=== PATIENT | female | born 1990 | race Caucasian/White ===

== ENCOUNTER 2018-06-25 05:08 | Inpatient (IN) | payer OTHER ==
[2018-06-24 11:39] LABS: RPR Titer ND
[2018-06-24 11:45] LABS: Urine Appearance CLEAR; Urine Bilirubin NEGATIVE (NEG); Urine Blood NEGATIVE (NEG); Urine Color YELLOW; Urine Glucose NEGATIVE (NEG); Urine Protein NEGATIVE (NEG); Urine Urobilinogen 0.2 mg/dL (0.2-1.0)
[2018-06-24 11:48] LABS: Urine Microscopic Reflex NO UMIC
[2018-06-24 11:50] LABS: Absolute Lymphocytes (CBC) 1.8 K/uL (0.7-4.9); Absolute Monocytes 0.8 K/uL (0.1-1.3); Absolute Neutrophil 9.4 K/uL (1.8-8.0); Basophils % 0.6 % (0-1.3); Eosinophils % 0.6 % (0-4.4); Hematocrit 32.1 % (36.0-45.0); Lymphocytes % 15.2 % (15.3-44.8); MCH 29.4 pg (27.0-35.0); MCV 88.6 fL (80-100); MPV 8.4 fL (7.6-11.3); Monocytes % 6.5 % (3.3-12.3); RBC Red Blood Cell Count 3.62 M/uL (3.86-4.86)
[2018-06-24 22:43] LABS: RPR (Rapid Plasma Reagin) NON-REACT (NON-REACT)
[2018-06-25] MEDS ORDERED: METHYLERGONOVINE 0.2MG/ML AMP IM PRN ×2 (05:11→08:39)
[2018-06-25] MEDS ORDERED: Ringers Lactate 1,000 ML IV PRN (05:11)
[2018-06-25] MEDS ORDERED: CARBOPROST TROME 250 MCG/ML IM PRN ×2 (05:11→08:39)
[2018-06-25] MEDS ORDERED: NA CIT/CITRIC AC 30 ML ORAL UDC PO ONE (05:15)
[2018-06-25] MEDS ORDERED: FAMOTIDINE 20 MG/2 ML VIAL IV ONE (05:16)
[2018-06-25] MEDS ORDERED: CEFAZOLIN 2 GM in NA CHLORIDE 0.9% 20 ML IVPB SCH (06:00)
[2018-06-25] MEDS ORDERED: Ringers Lactate 1,000 ML IV SCH (06:00)
[2018-06-25] MEDS ORDERED: METOCLOPRAMIDE 10 MG/2mL INJ IV SCH (06:00)
[2018-06-25 06:12] VITALS: BMI 33.0
[2018-06-25] MEDS ORDERED: CEFAZOLIN/SWI 2gm 2 GM/20 ML SYR ONE (07:12)
[2018-06-25] MEDS ORDERED: MORPHINE SULFATE/PF 1 MG/ML (10 ML AMP) ONE (07:31)
[2018-06-25] MEDS ORDERED: LIDOCAINE 2% MPF 5 ML VIAL ONE ×2 (07:36→07:42)
[2018-06-25] MEDS ORDERED: BUPIVACAINE 0.75% (PF) 2 ML SP ONE (07:37)
[2018-06-25] MEDS ORDERED: OXYTOCIN 10 UNIT/ML ML IV ONE (07:41)
[2018-06-25] MEDS ORDERED: ONDANSETRON HCL 40 MG/20 ML VIAL ONE (08:19)
[2018-06-25] MEDS ORDERED: Oxycodone HCl/Acetaminophen 1 TAB TAB PO PRN ×2 (08:39)
[2018-06-25] MEDS ORDERED: ONDANSETRON 4 MG (ODT) TAB PO PRN (08:39)
[2018-06-25] MEDS ORDERED: KETOROLAC 30 MG/ML INJ IV PRN (08:39)
[2018-06-25] MEDS ORDERED: METHYLERGONOVINE 0.2 MG TAB PO PRN (08:39)
--- NOTE | 2018-06-25 08:44 | P.BOP ---
Preoperative diagnosis: 38 wk , Cholestasis of , breech presentation Postoperative diagnosis: Same, viable male Primary procedure: Set O Type Operator: Mireya Cosby Estimated blood loss: 800ml Specimen: placenta Anesthesia: Spinal Complications: None Drain(s): Urinary catheter Transferred to: Other (277) Condition: Good
[2018-06-25] MEDS ORDERED: OXYTOCIN/LR 20 UNIT/1,000 ML BAG IV SCH (09:00)
[2018-06-25] MEDS ORDERED: Rho(D) IG (HUMAN) 300 MCG SYR IM ONE (10:18)
[2018-06-25] MEDS ORDERED: Ringers Lactate 1,000 ML IV ONE (11:43)
[2018-06-25] MEDS ORDERED: PROMETHAZINE 25 MG/ML VIAL ONE (13:58)
--- NOTE | 2018-06-25 14:49 | PREOPHP ---
Date of Admission: 06/25/2018 History: Ms. Botello is a 28-year-old female, 1, para 0, who has been follo wed by me during this with complications of Rh negative blood type, mild anemia, cholestasi s of , and now breech presentation. She has been on Ursodiol during this , has up to four 300-mg tablets daily currently, but is still having some itching and pruritus because of the cholestasis of . It has been recommended by our Maternal and Medicine home service consultant that she be delivered at 38 weeks gestation. She is scheduled for a primary because of breech presentation tomorrow. Past Medical History: Please see records. Family History: Please see records. Review of Systems: She reports no recent cough, cold, fever, or chills. No recent nausea, vomiting. She denies any amadeo ast lumps. She denies any bowel or bladder issues. has been active. Physical Examination: General: Reveals female, in no apparent distress. Neck: Supple without adenopathy or thyromegaly. Lungs: Clear. Cardiac: Regular rate and rhythm without murmurs. Breasts: Not examined. Abdomen: Nontender. Estimated weight is approximately 7+ to 8+ pounds. Pelvic: Not performed. Extremities: No cyanosis, clubbing, or edema. heart tones well heard, breech presentation was confirmed on ultrasound examination. Impression: 38+ week , cholestasis of , breech presentation, Rh negative blood typ e. Plan: The patient will be admitted for section, delivery of infant tomorrow morning. Risks and benefits are discussed. She has signed operative permit in my presence. SERGIO/MOLLY Voice ID: [id number]
[2018-06-25] MEDS: URSODIOL 300 MG CAP PO SCH (17:00)
--- NOTE | 2018-06-26 03:13 | OP ---
Surgeon: Sawyer River MD Anesthesiologist: Gregorio Arora CRNA and Delmar Donovan M.D. Preoperative Diagnoses: A 38+ week , cholestasis of , primigravid breech presentat ion. Postoperative Diagnoses: A 38+ week , cholestasis of , primigravid breech presenta tion, delivery of viable male in breech presentation. Procedure: Spinal block anesthesia, primary section, delivery of viable male . Description Of Procedure: After the patient had received 2 g of Ancef for antibiotic prophylaxis and adequate level of spinal block anesthesia was obtained, the patient was prepped and draped in usual fashion for abdominal surgery. A Pfannenstiel skin incision was made, carried down to the fascia. F ascia incised with a combination of sharp and blunt dissection. This was from the underlyi ng rectus muscles. These were divided in the midline. The peritoneum identified and incised. Vesic outerine peritoneum incised. Bladder flap placed. A low-transverse uterine incision was made. A 7 pounds 4 ounces male infant, 9 and 9 was delivered in footling breech presentation. Mouth and nose were suctioned. Cord was clamped, cut, and infant placed in a warmer. Cord blood was obtained. Placenta was manually removed. The uterus was then exteriorized. Cervix was dilated from above wi th a ring clamp which was passed from the operative field. The uterus was closed in 2 layers utilizi ng 0 Vicryl suture in running nonlocking fashion. Second layer used to imbricate the first. Bladder flap was reapproximated with a running suture of 3-0 Vicryl. The uterus was returned to the periton eal cavity which was cleaned of amniotic fluid, debris, and blood clot. The rectus muscles were appr oximated in the midline with simple sutures of 0 Vicryl to close the abdominal cavity. The fascia wa s closed with running sutures of #1 Vicryl from either margin to the middle in a running nonlocking f ashion. Subcutaneous sutures of 3-0 Vicryl, subdermal suture of 3-0 Vicryl, and subcuticular suture of 4-0 Monocryl were used to close the skin. The patient was taken to recovery room in satisfactory condition with Fitzgerald catheter in place. Sponge and needle counts were correct x2. Roofing Sales Representative Surgeon: Dr. Cosby. Estimated Total Blood Loss: Less than 800 cc. SERGIO/MOLLY Voice ID: [id number] Report ID: [id number]
[2018-06-26 04:18] LABS: Absolute Lymphocytes (CBC) 1.4 K/uL (0.7-4.9); Absolute Neutrophil 12.7 K/uL (1.8-8.0); Basophils % 0.2 % (0-1.3); Eosinophils % 0.2 % (0-4.4); Hematocrit 27.6 % (36.0-45.0); Lymphocytes % 9.5 % (15.3-44.8); MCH 30.3 pg (27.0-35.0); MCV 89.4 fL (80-100); MPV 8.1 fL (7.6-11.3); Monocytes % 6.6 % (3.3-12.3); RBC Red Blood Cell Count 3.08 M/uL (3.86-4.86)
[2018-06-26 04:25] LABS: HBsAG Nonreactive (Nonreactive)
[2018-06-26] MEDS: URSODIOL 300 MG CAP PO SCH ×2 (04:31→16:57)
--- NOTE | 2018-06-26 07:25 | P.PN ---
Date of Service: 06/26/18 S-No complaints, only a little pain O-pp H/H noted, expected drop in hct. Bandage dry, abdomen not distended. received rhogam. A-Satisfactory, po care plan discussed P-Advance diet, d/c IV and lynch, ambulate
[2018-06-26] MEDS ORDERED: IBUPROFEN 200 MG TAB PO ONE (14:48)
[2018-06-26] MEDS: IBUPROFEN 200 MG TAB PO PRN ×2 (15:00→20:27)
[2018-06-27] MEDS: URSODIOL 300 MG CAP PO SCH (06:55)
[2018-06-27 07:59] VITALS: BP 131/70; TEMP 97.2
[2018-06-27] MEDS: IBUPROFEN 200 MG TAB PO PRN (08:48)
== END 2018-06-27 11:10 | disposition home or self-care (01) | DRG 786 ==
LOC: 2ND-WC 05:08
PROVIDERS: ADMIT Specialist; ATTEND Specialist
PROC: 10D00Z1 Extraction of Products of Conception, Low, Open Approach (ICD-10-PCS; principal; 2018-06-25 07:30)
PROC: 3E0234Z Introduction of Serum, Toxoid and Vaccine into Muscle, Percutaneous Approach (ICD-10-PCS; 2018-06-26)
DX: O26.62 Liver and biliary tract disorders in childbirth (principal); K83.1 Obstruction of bile duct; O36.0930 Maternal care for other rhesus isoimmunization, third trimester, not applicable or unspecified; O99.02 Anemia complicating childbirth; D64.9 Anemia, unspecified; O32.8XX0 Maternal care for other malpresentation of fetus, not applicable or unspecified; Z3A.38 38 weeks gestation of pregnancy; Z37.0 Single live birth
CPT/HCPCS: 36415; 81003; 85025; 86592; 86850; 86870; 86900; 86901; 87340; 88307; J0690; J2210; J2405; J2550; J2590; J2765

== ENCOUNTER 2023-08-01 06:59 | Emergency (ER) | payer BC, OTHER, SELFPAY ==
--- OUTSIDE RECORDS SUMMARY | 2023-08-01 07:03 | XMS REPORT | Continuity of Care Document ---
Author Name Unknown Address [address] [facility] [address] [place] [address] [facility] Address [address] [facility]. [address] [place] [address] Care Team Providers Care Community Pharmacist Name Role Phone Unknown, Physician Primary Care Physician JUVENCIO Dey Attending Clinician Unavailab JUVENCIO Ramirez Attending Clinician Unavailable Sharla PINEDA, Aime Attending Clinician MARKIE CERVANTES Attending Clinician Un available Chen Reese RN Attending Clinician Unavailable Jen Patel RN Attending Clinician Unavailab ana [facility], Genetic Counselor Attending Clinician Unavailable JUVENCIO SINGLETON Admitting Clinician Unavailab perez [facility] Payer Name Policy Type Policy Number Effective Date Expirati on Date Source [employer]ET[employer] CHOICE POS II [id number] 2021-08-29 00:00:00 Problems Condition Name Condition Details Condition Category Status Onset Date Resolution Date Last Treatment Date Treating Clinician Comments Source History of bilateral breast reduction surgery History of bilateral breast reduction surgery Disease Active 11-25 00:00: 00 [facility] History of delivery History of delivery Disease Active 11-25 00:00: 00 [facility] History of cholestasi s during History of cholestasi s during Disease Active 11-25 00:00: 00 [facility] History of sleep apnea History of sleep apnea Disease Active 11-25 00:00: 00 [facility] Supervisio n of other normal , antepartum Supervisio n of other normal , antepartum Disease Active 11-25 00:00: 00 [facility] Rh negative status during in first trimester Rh negative status during in first trimester Disease Active 11-25 00:00: 00 [facility] 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 Active 11-25 00:00: 00 [facility] Desires (vaginal after ) trial Desires (vaginal after ) trial Disease Active 11-25 00:00: 00 [facility] Elevated liver enzymes Elevated liver enzymes Disease Active 11-25 00:00: 00 [facility] Allergies, Adverse Reactions, Alerts Allergy Name Allergy Type Status Severity Reaction(s) Onset Date Inactive Date Treating Clinician Comments Source levoflox acin DA Active [place] rash 10-24 00:00: 00 [facility] levoflox acin DA Active [place] 10-24 00:00: 00 [facility] Lev[facility] acin Allergy to substanc e Active Rash 02-22 00:00: 00 [facility] Social History Social Habit Start Date Stop Date Quantity Comments Source ASSERTION 2021-09-10 00:00:00 [facility] History SDOH Alcohol Frequency [facility] History SDOH Alcohol Std Drinks [facility] History SDOH Alcohol Binge [facility] History of tobacco use Cigarette Smoker [facility] Exposure to SARS-CoV-2 (event) 2022-06-13 00:00:00 2022-06-23 09:01:00 Not sure [facility] Alcohol intake 2022-05-31 00:00:00 2022-05-31 00:00:00 0 /d [facility] Tobacco use and exposure 2021-11-25 00:00:00 2021-11-25 00:00:00 Smokeless tobacco non-user [facility] Alcohol Comment 2021-11-25 00:00:00 2021-11-25 00:00:00 right now but when not only occasionally [facility] Cigarette pack-years 2021-11-25 00:00:00 2021-11-25 00:00:00 [facility] Sex Assigned At 1990 00:00:00 1990 00:00:00 F [facility] Smoking Status Start Date Stop Date Source Never smoked tobacco [facility] Medications Ordered Medication Name Filled Medication Name Start Date Stop Date Current Medication? Ordering Clinician Indication Dosage Frequency Signature (SIG) Comments Components Source Vit-Fe Fumarate-FA ( VITAMINS PO) 2021-08 09:10: 14 Yes Take by mouth. [facility] NIFEdipine XL (Procardia XL) 30 MG 24 hr tablet 05-19 00:00: 00 Yes 30mg QD Take 30 mg by mouth 1 (one) time each day. [facility] NIFEdipine XL (Procardia XL) 30 MG 24 hr tablet 05-19 00:00: 00 Yes 30mg QD Take 30 mg by mouth 1 (one) time each day. [facility] ferrous sulfate (Fe Tabs) 325 (65 Fe) MG EC tablet 05-12 00:00: 06-12 04:59 :00 No [id number] 325mg Take 1 tablet (325 mg total) by mouth in the morning and 1 tablet (325 mg total) in the evening. Take before meals. Do not crush, chew, or split. . [facility] docusate sodium (Colace) 100 MG capsule 05-12 00:00: 00 06-12 04:59 :00 No [id number] 100mg Q.5D Take 1 capsule (100 mg total) by mouth 2 (two) times a day if needed for constipati on. [facility] ursodiol (Karen Forte) 500 MG tablet 05-09 00:00: 00 06-09 04:59 :00 No [id number] 500mg Q.5D Take 1 tablet (500 mg total) by mouth in the morning and 1 tablet (500 mg total) in the evening. [facility] pantoprazol e (Protonix) 40 MG EC tablet 05-05 00:00: 00 06-05 04:59 :00 No [id number] 40mg Take 1 tablet (40 mg total) by mouth 1 (one) time each day before breakfast. Do not crush, chew, or split. [facility] pantoprazol e (Protonix) 40 MG EC tablet 05-05 00:00: 00 06-05 04:59 :00 No [id number] 40mg Take 1 tablet (40 mg total) by mouth 1 (one) time each day before breakfast. Do not crush, chew, or split. [facility] metroNIDAZO LE (Flagyl) 500 MG tablet 05-05 00:00: 00 05-13 04:59 :00 No [id number] 500mg Q.5D Take 1 tablet (500 mg total) by mouth in the morning and 1 tablet (500 mg total) in the evening. Do all this for 7 days. [facility] ursodiol (Karen Forte) 500 MG tablet 03-15 00:00: 00 04-15 04:59 :00 No [id number] 500mg Q.5D Take 1 tablet (500 mg total) by mouth in the morning and 1 tablet (500 mg total) in the evening. [facility] ursodiol (Karen Forte) 500 MG tablet 03-15 00:00: 00 04-15 04:59 :00 No [id number] 500mg Q.5D Take 1 tablet (500 mg total) by mouth in the morning and 1 tablet (500 mg total) in the evening. [facility] ursodiol (Karen Forte) 500 MG tablet 03-15 00:00: 00 04-15 04:59 :00 No [id number] 500mg Q.5D Take 1 tablet (500 mg total) by mouth in the morning and 1 tablet (500 mg total) in the evening. [facility] ursodiol (Karen Forte) 500 MG tablet 03-15 00:00: 00 04-15 04:59 :00 No [id number] 500mg Q.5D Take 1 tablet (500 mg total) by mouth in the morning and 1 tablet (500 mg total) in the evening. [facility] Vit-Fe Fumarate-FA ( VITAMINS PO) 08 11:35: 35 Yes Take by mouth. [facility] Vit-Fe Fumarate-FA ( VITAMINS PO) 4-08 11:35: 35 Yes Take by mouth. [facility] Vit-Fe Fumarate-FA ( VITAMINS PO) 4-08 11:35: 35 Yes Take by mouth. [facility] Vit-Fe Fumarate-FA ( VITAMINS PO) 0 4-08 11:35: 35 Yes Take by mouth. [facility] Vit-Fe Fumarate-FA ( VITAMINS PO) 4-08 11:35: 35 Yes Take by mouth. [facility] Vit-Fe Fumarate-FA ( VITAMINS PO) 0 4-08 11:35: 35 Yes Take by mouth. [facility] Vit-Fe Fumarate-FA ( VITAMINS PO) 408 11:35: 35 Yes Take by mouth. [facility] Vit-Fe Fumarate-FA ( VITAMINS PO) 4-08 11:35: 35 Yes Take by mouth. [facility] Vit-Fe Fumarate-FA ( VITAMINS PO) 408 11:35: 35 Yes Take by mouth. [facility] Vit-Fe Fumarate-FA ( VITAMINS PO) 408 11:35: 35 Yes Take by mouth. [facility] Vit-Fe Fumarate-FA ( VITAMINS PO) 408 11:35: 35 Yes Take by mouth. [facility] Vit-Fe Fumarate-FA ( VITAMINS PO) 4-08 11:35: 35 Yes Take by mouth. [facility] Vit-Fe Fumarate-FA ( VITAMINS PO) 408 11:35: 35 Yes Take by mouth. [facility] Vital Signs Vital Name Observation Time Observation Value Comments S tia Systolic blood pressure 2022-06-23 14:05:00 137 mm[Hg] [facility] Diastolic blood pressure 2022-06-23 14:05:00 81 mm[Hg] [facility] Heart rate 2022-06-23 14:05:00 73 /min [facility] Body temperature 2022-06-23 14:05:00 36.39 Lizbeth [facility] Body height 2022-06-23 14:05:00 165.1 cm [facility] Body weight 2022-06-23 14:05:00 85[facility]458 [facility] BMI 2022-06-23 14:05:00 31.35 kg/m2 [facility] Systolic blood pressure 2022-05-31 20:03:00 112 mm[Hg] [facility] Diastolic blood pressure 2022-05-31 20:03:00 77 mm[Hg] [facility] Heart rate 2022-05-31 20:03:00 68 /min [facility] Body temperature 2022-05-31 20:03:00 36.28 Lizbeth [facility] Body height 2022-05-31 20:03:00 165.1 cm [facility] Body weight 2022-05-31 20:03:00 86.093 kg [facility] BMI 2022-05-31 20:03:00 31.58 kg/m2 [facility] Systolic blood pressure 2022-05-05 16:20:00 130 mm[Hg] [facility] Diastolic blood pressure 2022-05-05 16:20:00 79 mm[Hg] [facility] Heart rate 2022-05-05 16:20:00 74 /min [facility] Body temperature 2022-05-05 16:20:00 36.39 Lizbeth [facility] Body weight 2022-05-05 16:20:00 93.441 kg [facility] BMI 2022-05-05 16:20:00 34.28 kg/m2 [facility] Systolic blood pressure 2022-04-28 16:17:00 115 mm[Hg] [facility] Diastolic blood pressure 2022-04-28 16:17:00 74 mm[Hg] [facility] Heart rate 2022-04-28 16:17:00 73 /min [facility] Body weight 2022-04-28 16:17:00 92.08 kg [facility] BMI 2022-04-28 16:17:00 33.78 kg/m2 [facility] Systolic blood pressure 2022-04-14 17:07:00 117 mm[Hg] [facility] Diastolic blood pressure 2022-04-14 17:07:00 74 mm[Hg] [facility] Heart rate 2022-04-14 17:07:00 73 /min [facility] Body temperature 2022-04-14 17:07:00 36.5 Lizbeth [facility] Body weight 2022-04-14 17:07:00 92.534 kg [facility] BMI 2022-04-14 17:07:00 33.95 kg/m2 [facility] Systolic blood pressure 2022-03-31 14:16:00 123 mm[Hg] [facility] Diastolic blood pressure 2022-03-31 14:16:00 77 mm[Hg] [facility] Heart rate 2022-03-31 14:16:00 71 /min [facility] Body temperature 2022-03-31 14:16:00 36.39 Lizbeth [facility] Body weight 2022-03-31 14:16:00 92.08 kg [facility] BMI 2022-03-31 14:16:00 33.78 kg/m2 [facility] Systolic blood pressure 2022-03-09 14:35:00 107 mm[Hg] [facility] Diastolic blood pressure 2022-03-09 14:35:00 69 mm[Hg] [facility] Heart rate 2022-03-09 14:35:00 67 /min [facility] Body weight 2022-03-09 14:35:00 89.359 kg [facility] BMI 2022-03-09 14:35:00 32.78 kg/m2 [facility] Systolic blood pressure 2022-02-17 13:54:00 113 mm[Hg] [facility] Diastolic blood pressure 2022-02-17 13:54:00 71 mm[Hg] [facility] Heart rate 2022-02-17 13:54:00 71 /min [facility] Body weight 2022-02-17 13:54:00 87.816 kg [facility] BMI 2022-02-17 13:54:00 32.22 kg/m2 [facility] Procedures Procedure Date / Time Performed Performing Clinicia n Source COMPREHENSIVE METABOLIC PANEL 2022-03-09 15:59:00 Juvencio Meeks [facility] BILE ACIDS, TOTAL 2022-03-09 15:59:00 Juvencio Singleton [facility] Encounters Start Date/Time End Date/Time Encounter Type Admission Type Attending [facility] Care Facility Care Department Encounter ID Source 2022-06-23 09:00:05 Outpatient [facility] [id number] [facility] 2022-06-21 16:22:44 Outpatient [facility] [id number] [facility] 2022-06-07 10:45:17 Outpatient [facility] [id number] [facility] 2022-03-29 13:55:02 Inpatient JUVENCIO SINGLETON [facility] [id number] Demar [facility] 2021-10-12 12:23:34 Outpatient [facility] [id number] [facility] 2021-09-26 08:46:16 Outpatient JUVENCIO SINGLETON [facility] [id number] [facility] 2021-06-17 10:23:54 Outpatient MANIMAGJUVENCIO [facility] [id number] [facility] 2021-05-11 15:10:41 Outpatient MANI JUVENCIO [facility] [id number] [facility] 2020-10-24 13:55:22 Inpatient [facility] [id number] [facility] 2023-06-29 08:50:00 2023-06-29 08:50:00 Outpatient JUVENCIO SINGLETON [facility] [id number] [facility] 2022-06-23 08:50:00 2022-06-23 09:46:51 [facility] 1.2.840.114 350.1.13.58 9.2.7.2.686 [id number] [facility] 2022-05-31 15:00:00 2022-05-31 15:14:36 Visit Aime Magdaleno [facility] 1.2.840.114 350.1.13.58 9.2.7.2.686 [id number] [facility] 2022-05-23 15:00:00 2022-05-23 15:00:00 Outpatient MANI JUVENCIO [facility] [id number] [facility] 2022-05-17 19:12:00 2022-05-19 11:00:00 Inpatient JUVENCIO ADHIKARI [facility] [id number] Benz [facility] 2022-05-12 02:18:00 2022-05-14 13:11:00 Inpatient E JUVENCIO SINGLETON [facility] [id number] [facility] 2022-05-12 12:00:00 2022-05-12 12:00:00 Outpatient JUVENCIO SINGLETON [facility] [id number] [facility] 2022-05-12 11:30:00 2022-05-12 11:30:00 Outpatient [facility] [id number] [facility] 2022-05-12 11:20:00 2022-05-12 11:20:00 Outpatient JUVENCIO SINGLETON [facility] [id number] [facility] 2022-05-05 11:30:00 2022-05-05 13:08:51 Outpatient [facility] [id number] [facility] 2022-05-05 10:50:00 2022-05-05 12:04:14 Routine Juvencio Singleton [facility] 1.2.840.114 350.1.13.58 9.2.7.2.686 [id number] [facility] 2022-04-28 11:30:00 2022-04-28 12:46:19 Outpatient [facility] [id number] [facility] 2022-04-28 10:40:00 2022-04-28 11:48:04 Routine Juvenc[facility] Singleton [facility] 1.2.840.114 350.1.13.58 9.2.7.2.686 [id number] [facility] 2022-04-21 15:00:00 2022-04-21 15:53:31 Outpatient [facility] [id number] [facility] 2022-04-14 11:30:00 2022-04-14 12:56:30 Routine Juvencio Singleton [facility] 1.2.840.114 350.1.13.58 9.2.7.2.686 [id number] [facility] 2022-04-14 11:00:00 2022-04-14 12:03:00 Outpatient [facility] [id number] [facility] 2022-03-31 09:10:00 2022-03-31 10:15:46 Routine Mani Juvencio [facility] 1.2.840.114 350.1.13.58 9.2.7.2.686 [id number] [facility] 2022-03-29 11:54:00 2022-03-29 13:43:00 Emergency E MARKIE CERVANTES [facility] [id number] [facility] 2022-03-29 00:00:00 2022-03-29 00:00:00 Telephone Hugh Chen Ashby [facility] 1.2.840.114 350.1.13.58 9.2.7.2.686 [id number] [facility] 2022-03-20 14:30:00 2022-03-20 15:03:05 Outpatient [facility] [id number] [facility] 2022-03-20 15:00:00 2022-03-20 15:00:00 Outpatient [facility] [id number] [facility] 2022-03-15 00:00:00 2022-03-15 00:00:00 Telephone Hugh Chen Reese Chen [facility] 1.2.840.114 350.1.13.58 9.2.7.2.686 [id number] [facility] 2022-03-15 00:00:00 2022-03-15 00:00:00 Telephone HughChen rae Chen [facility] 1.2.840.114 350.1.13.58 9.2.7.2.686 [id number] [facility] 2022-03-14 00:00:00 2022-03-14 00:00:00 Telephone Capon BridgeChen rae Chen [facility] 1.2.840.114 350.1.13.58 9.2.7.2.686 [id number] [facility] 2022-03-09 09:50:00 2022-03-09 11:18:05 Routine Juvencio Singleton [facility] 1.2.840.114 350.1.13.58 9.2.7.2.686 [id number] [facility] 2022-03-02 00:00:00 2022-03-02 00:00:00 Telephone Chen Reese Valerie [facility] 1.2.840.114 350.1.13.58 9.2.7.2.686 [id number] [facility] 2022-02-24 00:00:00 2022-02-24 00:00:00 Telephone Jen Patel Chelsea [facility] 1.2.840.114 350.1.13.58 9.2.7.2.686 [id number] [facility] 2022-02-17 08:50:00 2022-02-17 09:42:23 Routine Juvencio Singleton [facility] 1.2.840.114 350.1.13.58 9.2.7.2.686 [id number] [facility] 2022-01-18 09:20:00 2022-01-18 10:45:24 Routine Juvencio Singleton [facility] 1.2.840.114 350.1.13.58 9.2.7.2.686 [id number] [facility] 2021-12-30 13:00:00 2021-12-30 13:32:44 Routine Juvencio Singleton [facility] 1.2.840.114 350.1.13.58 9.2.7.2.686 [id number] [facility] 2021-11-25 10:40:00 2021-11-25 11:53:57 Initial Juvencio Singleton [facility] 1.2.840.114 350.1.13.58 9.2.7.2.686 [id number] [facility] 2021-11-25 09:00:00 2021-11-25 10:00:00 Education [facility], Genetic Counselor [facility] 1.2.840.114 350.1.13.58 9.2.7.2.686 [id number] [facility] 2021-11-22 00:00:00 2021-11-22 00:00:00 Telephone Hugh Chenron Reese Chen [facility] 1.2.840.114 350.1.13.58 9.2.7.2.686 [id number] [facility] 2021-10-26 00:00:00 2021-10-26 00:00:00 Telephone Capon BridgeChen rae Chen [facility] 1.2.840.114 350.1.13.58 9.2.7.2.686 [id number] [facility] 2021-10-12 10:30:00 2021-10-12 11:40:50 Office Visit Juvencio Singleton [facility] 1.2.840.114 350.1.13.58 9.2.7.2.686 [id number] [facility] 2021-10-10 00:00:00 2021-10-10 00:00:00 Telephone Sil Reeseerie HughChen [facility] 1.2.840.114 350.1.13.58 9.2.7.2.686 [id number] [facility] 2021-06-24 08:51:29 2021-06-24 09:35:03 Procedure Visit Juvencio Singleton [facility] 1.2.840.114 350.1.13.58 9.2.7.2.686 [id number] [facility] 2021-06-17 08:46:57 2021-06-17 10:22:16 Office Visit Juvencio Singleton [facility] 1.2.840.114 350.1.13.58 9.2.7.2.686 [id number] [facility] Results Test Description Test Time Test Comments Results Result Co mments Source [facility] [id number] 06:00:00* Test Item Value Reference Range Interpretation Comme nts GLUCOSE (test code = 2345-7) 67 mg/dL 65-99 ? Fastin g reference interval UREA NITROGEN (BUN) (test code = 3094-0) 8 mg/dL 7-25 CREATININE (test code = 2160-0) 0.69 mg/dL 0.5-0.97 EGFR (test code = 231490985) See_Comment The eGFR is base d on the CKD-EPI 2020 equation. To calculate the new eGFR from a previous Creatinine or Cystatin Cresult, go to https://www.kidne y.org/professiona ls/kdoqi/gfr%5Fca lculator [Automated message] The system which generated this result transmitted reference range: > OR = 60 mL/min/1.73m2. The reference range was not used to interpret this result as normal/abnormal. BUN/CREATININE RATIO (test code = 3097-3) NOT APPLICABLE See_Comment [Automated message] The system which generated this result transmitted reference range: 6 - 22 (calc). The reference range was not used to interpret this result as normal/abnormal. SODIUM (test code = 2951-2) 138 mmol/L 135-146 POTASSIUM (test code = 2823-3) 4.5 mmol/L 3.5-5.3 CHLORIDE (test code = 2075-0) 107 mmol/L 98-110 CARBON DIOXIDE (test code = 2027-9) 24 mmol/L 20-32 CALCIUM (test code = 64391-8) 9 mg/dL 8.6-10.2 PROTEIN, TOTAL (test code = 2885-2) 6.6 g/dL 6.1-8.1 ALBUMIN (test code = 1751-7) 3.8 g/dL 3.6-5.1 GLOBULIN (test code = 12032-9) See_Comment [Automated message] The system which generated this result transmitted reference range: 1.9 - 3.7 g/dL (calc). The reference range was not used to interpret this result as normal/abnormal. ALBUMIN/GLOBULIN RATIO (test code = 1759-0) See_Comment [Automated message] The system which generated this result transmitted reference range: 1.0 - 2.5 (calc). The reference range was not used to interpret this result as normal/abnormal. BILIRUBIN, TOTAL (test code = 1975-2) 0.7 mg/dL 0.2-1.2 ALKALINE PHOSPHATASE (test code = 6768-6) 99 U/L 31-125 AST (test code = 1920-8) 18 U/L 10-30 ALT (test code = 1742-6) 26 U/L 6-29 RAC (test code = RAC) Performing Organization Information: ? ?Site ID: [id number] ? ?Name: [facility] ? ?Address: [address] [place] [id number] ? ?Director: PACO CLAYTON MD [facility] HealthCHEMISTRY 7 [id number] 14:50:00* Test Item Value Reference Range Interpretation Comme nts SODIUM (test code = NA) 143 mEq/L 135-145 N POTASSIUM (test code = K) 4.2 mEq/L 3.5-5.0 N CHLORIDE (test code = CL) 106 mEq/L 100-115 N CARBON DIOXIDE (test code = CO2) 30 mEq/L 22-31 N ANION GAP (test code = GAP) 11.30 10-20 N GLUCOSE (test code = GLU) 91 mg/dL 65-110 N BLOOD UREA NITROGEN (test co de = BUN) 12 mg/dL 7-18 N GLOMERULAR FILTRATION RATE ( test code = GFR) 65 ml/min >60 N CREATININE (test code = CREAT) 1.0 mg/dL 0.5-1.0 N CALCIUM (test code = CA) 9.3 mg/dL 8.4-10.2 N UR HCG [id number] 14:39:00* Test Item Value Reference Range Interpretation Comme nts UR HCG QUAL (test code = HCGQLU) NEGATIVE 1. Very dilute u rine specimens, as indicated by a lowspecific gravity, may not contain labor relations representative levels ofhCG. 2. False negative results may occur when the levels of hCGare below the sensitivity level of the test. If is still suspected, a first morningurine specimen should be collected 48 hours later andtested. CBC W/AUTO [id number] 14:35:00* Test Item Value Reference Range Interpretation Comme nts WHITE BLOOD CELL (test code = WBC) 7.6 K/mm3 6.5-12.3 N RED BLOOD CELL (test code = RBC) 4.30 M/mm3 3.51-4.69 N HEMOGLOBIN (test code = HGB) 12.8 g/dL 10.1-13.8 N HEMATOCRIT (test code = HCT) 39.6 % 32.5-41.8 N MEAN CELL VOLUME (test code = MCV) 92.1 fL 84.6-96.6 N MEAN CELL HGB (test code = MCH) 29.8 pg 27.3-33.9 N MEAN CELL HGB CONCETRATION ( test code = MCHC) 32.3 gm/dL 32.0-34.2 N RED CELL DISTRIBUTION WIDTH (test code = RDW) 12.9 % 12.2-16.3 N PLATELET COUNT (test code = PLT) 222 K/mm3 134-363 N MEAN PLATELET VOLUME (test c ode = MPV) 8.8 fL 9.2-12.7 L NEUTROPHIL % (test code = NT%) 56.8 % 57.9-77.3 L LYMPHOCYTE % (test code = LY%) 33.6 % 14.5-29.7 H MONOCYTE % (test code = MO%) 8.1 % 3.6-10.2 N EOSINOPHIL % (test code = EO%) 0.9 % 0.0-3.0 N BASOPHIL % (test code = BA%) 0.5 % 0.1-0.9 N NEUTROPHIL # (test code = NT#) 4.3 K/mm3 LYMPHOCYTE # (test code = LY#) 2.6 K/mm3 MONOCYTE # (test code = MO#) 0.6 K/mm3 EOSINOPHIL # (test code = EO#) 0.07 K/mm3 BASOPHIL # (test code = BA#) 0.0 K/mm3 PLATELET MORPHOLOGY REQUIRED (test code = PLTMR) NORMAL NORMAL Notes Date/Time Note Provider Source 2020-10-24 14:02:00 [id number] [facility] ([facility])EMERGENCY PROVIDER REPORTREPORT#:[id number] REPORT STATUS: SignedDATE:10/24/20 TIME: 1402 PATIENT: SHARI ALVAREZ UNIT #: [id number]#: [id number] ROOM/BED:AGE: 30 SEX: F PCP PHYS: DOES_NOT KNOWSERVICE AUTHOR: Neida Rosas MD * ALL edits or amendments must be made on the electronic/computer document * HPI-General Illness Free Text HPI NotesFree Text HPI Notes30 yo lady wosig hx of hemmroids x 1 wk 3 days stareted noting yesterday bm that noted bleeding today started with pressure pelvic pain bl passed clots and used pads sx disc, breast reduction and c [place] none ros -ConstitutionalDenies: Fever. Chills.-GIDenies: Nausea, Vomiting. Abdominal pain. Diarrhea + Hemorrhoids, rectal bleeding constipation-GUDenies: Dysuria, Hematuria,-MusculoskeletalDenies: Extremity pain, Ext Swelling-SkinDenies: Rash, Swelling.-NeurologicDenies: Numbness, Tingling.-EyesDenies:visual loss, blurred vision-RespiratoryDenies: Shortness of breath. dyspnea on exertion-CardiovascularDenies: Chest pain, Dyspnea on exertion, Edema.-Allergy:Denies Hives, Itching peGeneral/Const General/Const Awake, AlertMS Head Head Atraumatic, NormocephalicEyes Eyes Atraumatic, No scleral icterusMS Neck Neck Atraumatic, No meningismus, Full range of motionneck easily mobileResp/Chest no labored bs, no audible wheezing Cardiovascular Cardiovascular no cyanosis, Ext: moving all 4 ext, no swelling/ cyanosis noted on UE BlSkin Skin no apparent rashes, Dry, IntactNeurologic Neurologic Oriented X3, Speech NL, Gait NLENTAtraumatic, Airway patent, Ext aud canal NL, GeneralInitial Greet Date/Time 10/24/20 1345 PresentationChief Complaint __ (hemmroids) Past Medical History - AdultStated Complaint HEMORRHOIDS,LOTS OF RECTAL BLEEDING W/CLOTSAllergiesCoded Allergies:levofloxacin (From LEVAQUIN) (Mild, rash 10/24/20) Calculated Suicide Risk (nurs) No riskSmoking status: Smoking status for patients 13 years old or older: Never Smoker Physical Exam Vital SignsVital SignsFirst Documented: Result Date Time Pulse Ox 100 10/24 1348 B/P 109/61 / 1348 B/P Mean 77 10/24 1348 O2 Delivery Room air 10/24 1348 Temp 36.9 03/ 1348 Pulse 79 10/24 1348 Resp 18 10/24 1348 Last Documented: Result Date Time Pulse Ox 100 10/24 1348 B/P 109/61 03/ 1348 B/P Mean 77 10/24 1348 O2 Delivery Room air 10/24 1348 Temp 36.9 / 1348 Pulse 79 / 1348 Resp 18 10/24 1348 Review of Vital Signs Reviewed ImagesGenitourinary Female - Genitals Close-up[Embedded Image Not Available] 1) Nonthrombosed hemorrhoid, not bleeding, no internal hemorrhoids palpated Interpretation Diagnostics Lab Results InterpretationResultsLaboratory Tests 10/24/20 142:[Embedded Image Not Available]Laboratory Tests: 10/24 1426 Chemistry Sodium (135 - 145 mEq/L) 143 Potassium (3.5 - 5.0 mEq/L) 4.2 Chloride (100 - 115 mEq/L) 106 Carbon Dioxide (22 - 31 mEq/L) 30 Anion Gap (10 - 20) 11.30 BUN (7 - 18 mg/dL) 12 Creatinine (0.5 - 1.0 mg/dL) 1.0 Glomerular Filtr Rate (>60 ml/min) 65 Glucose (65 - 110 mg/dL) 91 Calcium (8.4 - 10.2 mg/dL) 9.3 Hematology WBC (6.5 - 12.3 K/mm3) 7.6 RBC (3.51 - 4.69 M/mm3) 4.30 Hgb (10.1 - 13.8 g/dL) 12.8 Hct (32.5 - 41.8 %) 39.6 MCV (84.6 - 96.6 fL) 92.1 MCH (27.3 - 33.9 pg) 29.8 MCHC (32.0 - 34.2 gm/dL) 32.3 RDW (12.2 - 16.3 %) 12.9 Plt Count (134 - 363 K/mm3) 222 MPV (9.2 - 12.7 fL) 8.8 L Neut % (Auto) (57.9 - 77.3 %) 56.8 L Lymph % (Auto) (14.5 - 29.7 %) 33.6 H Troup % (Auto) (3.6 - 10.2 %) 8.1 Eos % (Auto) (0.0 - 3.0 %) 0.9 Baso % (Auto) (0.1 - 0.9 %) 0.5 Neut # (Auto) (K/mm3) 4.3 Lymph # (Auto) (K/mm3) 2.6 Troup # (Auto) (K/mm3) 0.6 Eos # (Auto) (K/mm3) 0.07 Baso # (Auto) (K/mm3) 0.0 Urines Urine HCG, Qual NEGATIVE Patient Discharge Departure Vital Signs/ConditionVital SignsFirst Documented: Result Date Time Pulse Ox 100 03/ 1348 B/P 109/61 03/07 1348 B/P Mean 77 03/07 1348 O2 Delivery Room air 03/ 1348 Temp 36.9 03/07 1348 Pulse 79 03/07 1348 Resp 18 03/07 1348 Last Documented: Result Date Time Pulse Ox 100 03/07 1348 B/P 109/61 03/07 1348 B/P Mean 77 03/07 1348 O2 Delivery Room air 03/07 1348 Temp 36.9 03/07 1348 Pulse 79 03/07 1348 Resp 18 03/07 1348 All vital signs available at the time of this entry have been reviewed. Clinical ImpressionClinical ImpressionPrimary Impression: ConstipationSecondary Impressions: Bleeding hemorrhoid Disposition DecisionDischarge )( Discharged to Home Yes )( Time 1516 )( Date 10/24/20 Discharge/Care Plan(Auto) PrescriptionsCurrent Visit ScriptsDOCUSATE SODIUM (COLACE) 100 MG PO DAILY 30 Days #30 CAPS HYDROCORTISONE (ANUSOL-HC 2.5%) 1 APPLIC RECTAL BID PRN PRN hemmroids 7 Days #30 GM UNTIL RESOLVED Additional InstructionsPlease call your GI doctor for follow-up appointment. Hemorrhoids may need to be ligated. Return to the emergency department with new or worsening symptoms.Caity Block MD, Rohan DO Discharge NoteI have spoken with the patient and/or caregivers. I have explained the patient'scondition, diagnoses and treatment plan based on the information available to meat this time. I have answered the patient's and/or caregiver's questions and addressed any concerns. The patient and/or caregivers have as good an understanding of the patient's diagnosis, condition and treatment plan as can beexpected at this point. The vital signs have been stable. The patient's condition is stable and appropriate for discharge from the emergency department. The patient will pursue further outpatient evaluation with the primary care physician or other designated or consulting physician as outlined in the discharge instructions. The patient and/or caregivers are agreeable to this planof care and follow-up instructions have been explained in detail. The patient and/or caregivers have received these instructions in written format and have expressed an understanding of the discharge instructions. The patient and/or caregivers are aware that any significant change in condition or worsening of symptoms should prompt an immediate return to this or the closest emergency department or a call to 911. at 1936RPT #:[id number] OF [facility]PORTTex[facility] department [id number] ilable for patient [id number] [facility]
[2023-08-01] MEDS ORDERED: ONDANSETRON 4 MG/2 ML VIAL ONE (07:33)
[2023-08-01 07:34] LABS: Absolute Lymphocytes (CBC) 1.6 K/uL (0.7-4.9); Hematocrit 41.9 % (36.0-45.0); Lymphocytes % 13.4 % (15.3-44.8); MCV 88.4 fL (80-100); MPV 7.2 fL (7.6-11.3); Platelets 255 thou/uL (152-406); RBC Red Blood Cell Count 4.74 M/uL (3.86-4.86)
[2023-08-01 07:49] LABS: Albumin 3.7 g/dL (3.4-5.0); Bilirubin Total 0.6 mg/dL (0.2-1.0); Potassium 4.1 mEq/L (3.5-5.1); Protein, Total 7.6 g/dL (6.4-8.2)
[2023-08-01] MEDS ORDERED: MORPHINE 4 MG/ML SYR ONE ×2 (08:01→10:15)
--- NOTE | 2023-08-01 08:15 | ER ---
Nurse's Notes [facility] Name: Marianna Botello Age: 33 yrs Sex: Female : 1990 Arrival Date: 08/01/2023 Time: 06:59 Bed 8 Private MD: Diagnosis: Left sided colitis with rectal bleeding;Lower abdominal pain, unspecified;Diarrhea, unspecified Presentation: 08/01 07:16 Chief complaint: Diarrhea and lower abdominal pain x 4 days, vomiting and blood in hb stool x 2 days, pain became worse last night. Seen at [facility] yesterday, prescribed Bactrim, Flagyl, and dicyclomine for colitis, has not started Flagyl yet. Coronavirus screen: At this time, the client does not indicate any symptoms associated with coronavirus-19. Ebola Screen: No symptoms or risks identified at this time. Initial Sepsis Screen: Does the patient meet any 2 criteria? No. Patient's initial sepsis screen is negative. Does the patient have a suspected source of infection? No. Patient's initial sepsis screen is negative. Risk Assessment: Do you want to hurt yourself or someone else? Patient reports no desire to harm self or others. Onset of symptoms was July 29, 2023. 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 - Social history:: Smoking status: Patient denies any tobacco usage or history of. Screenin:22 [facility] ED Fall Risk Assessment (Adult) Score/Fall Risk Level 0 - 2 = Low Risk ll1 Oriented to surroundings, Maintained a safe environment, Educated pt \T\ family on fall prevention, incl call for assistance when getting out of bed, Hourly rounding (assess needs \T\ fall precautionary measures) done. Abuse screen: Denies threats or abuse. Nutritional screening: No deficits noted. Tuberculosis screening: No symptoms or risk factors identified. Assessment: 07:10 General: Appears uncomfortable, Behavior is calm, cooperative, appropriate for age. ll1 Pain: Complains of pain in abdomen Quality of pain is described as aching, crampy. Neuro: No deficits noted. Cardiovascular: No deficits noted. GI: Abdomen is flat, Bowel sounds present X 4 quads. Abd is soft Abdomen is tender to palpation Reports lower abdominal pain, upper abdominal pain, cramping, diarrhea, bloody stool, nausea, vomiting. 07:55 Reassessment: No changes from previously documented assessment. Patient and/or family ll1 updated on plan of care and expected duration. Pain level reassessed. Patient is alert, oriented x 3, equal unlabored respirations, skin warm/dry/pink. 07:59 Reassessment: No changes from previously documented assessment. Rectal exam with Dr. sindy Garcia, tolerated well. 08:26 Reassessment: No changes from previously documented assessment. Patient and/or family ll1 updated on plan of care and expected duration. Pain level reassessed. Patient is alert, oriented x 3, equal unlabored respirations, skin warm/dry/pink. 08:42 Reassessment: No changes from previously documented assessment. Patient and/or family ll1 updated on plan of care and expected duration. Pain level reassessed. Patient is alert, oriented x 3, equal unlabored respirations, skin warm/dry/pink. 09:12 Reassessment: No changes from previously documented assessment. Patient and/or family ll1 updated on plan of care and expected duration. Pain level reassessed. Patient is alert, oriented x 3, equal unlabored respirations, skin warm/dry/pink. 10:05 Reassessment: No changes from previously documented assessment. Patient and/or family ll1 updated on plan of care and expected duration. Pain level reassessed. Patient is alert, oriented x 3, equal unlabored respirations, skin warm/dry/pink. Vital Signs: 07:16 BP 132 / 80; Pulse 72; Resp 16; Temp 98.4(O); Pulse Ox 100% on R/A; Weight 75.75 kg; hb Height 5 ft. 5 in. ; Pain 10/10; 07:59 BP 106 / 66; Pulse 67; Resp 16; Pulse Ox 100% on R/A; ll1 08:19 BP 130 / 87; Pulse 67; Resp 18; Pulse Ox 98% on R/A; ld1 08:42 BP 134 / 87; Pulse 62; Resp 16; Pulse Ox 100% on R/A; Pain 2/10; ll1 10:04 BP 131 / 86; Pulse 65; Resp 16; Pulse Ox 100% ; Pain 7/10; ll1 07:16 Body Mass Index 27.79 (75.75 kg, 165.1 cm) hb 07:16 Pain Scale: Adult hb 08:42 Pain Scale: Adult ll1 10:04 Pain Scale: Adult ll1 ED Course: 07:03 Patient arrived in ED. gm2 07:08 Wade Garcia DO is Attending Physician. ms3 07:10 Jesusita Montano, CANDI is Primary Nurse. ll1 07:10 Arm band placed on Patient placed in an exam room, on a stretcher. ll1 07:15 Inserted saline lock: 22 gauge in right antecubital area, using aseptic technique. ll1 Blood collected. 07:19 Triage completed. hb 07:23 Patient has correct armband on for positive identification. Bed in low position. Call ll1 light in reach. Client placed on continuous cardiac and pulse oximetry monitoring. NIBP monitoring applied. 08:10 initiated transfer to [facility]. bd 09:07 pt accepted in transfer to [facility] by Dr Gale,admin approval given by Ashok Singh. pt going to [id number]. 09:12 No provider procedures requiring assistance completed. Patient transferred, IV remains ll1 in place. 09:13 Provided Education on: n/a. ll1 Administered Medications: 07:39 Drug: Ondansetron IVP 4 mg IVP once; over 2 minutes Route: IVP; Site: right antecubital;ll1 08:42 Follow up: Response: No adverse reaction ll1 07:54 Drug: morphine IVP or IV 4 mg IVP once over 4 mins Route: IVP; Infused Over: 4 mins; ll1 Site: right antecubital; 08:42 Follow up: Response: No adverse reaction; Pain is decreased; RASS: Alert and Calm (0) ll1 10:04 Drug: morphine IVP or IV 4 mg IVP once over 4 mins Route: IVP; Infused Over: 4 mins; ll1 Site: right antecubital; Medication: 07:23 VIS not applicable for this client. ll1 Outcome: 08:14 ER care complete, transfer ordered by MD. ms3 09:13 Transferred by ground EMS [place] [facility] [facility] completed. ll1 09:13 Transferred Note: Report called to Kisha Wilson RN at [facility] 09:13 Condition: stable 09:13 Instructed on the need for transfer, 10:05 Patient left the ED. ll1 Signatures: Lou Clark Heather, RN RN Jesusita Montano RN RN ll1 Wade Garcia DO DO ms3 Kathrine Garcia RN RN 1 Yamila Harper 2
--- NOTE | 2023-08-01 08:15 | EDPHYS ---
Physician Documentation [facility] Name: Marianna Botello Age: 33 yrs Sex: Female : 1990 Arrival Date: 08/01/2023 Time: 06:59 Bed 8 Private MD: ED Physician Wade Garcia HPI: 08/01 07:31 This 33 yrs old Female presents to ER via Ambulatory with complaints of Abdominal Pain, ms3 Bloody Stools. 07:31 33-year-old female with past medical history of diverticulitis [place] [facility] [place] diarrhea, abdominal pain that began on Sunday. Patient states she was seen at [place] emergency department 2 times yesterday and was instructed to go to an emergency department that was connected to a hospital if she had further problems. Patient states her lower abdominal pain has continued and she is now having bloody diarrhea. Patient is currently taking Bactrim and Bentyl. Patient was unable to fill her prescription for Flagyl as she received it at 11 PM last night. Patient denies any alleviating or inciting factors.. 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 - Social history:: Smoking status: Patient denies any tobacco usage or history of. ROS: 07:31 Constitutional: Negative for fever, and chills. Neck: Negative for injury, pain, and ms3 swelling, Cardiovascular: Negative for chest pain, and palpitations. Respiratory: Negative for shortness of breath, cough, wheezing, and pleuritic chest pain, Abdomen/GI: Negative for abdominal pain, nausea, vomiting, diarrhea, and constipation, Skin: Negative for injury, rash, and discoloration, 07:31 All other systems are negative, Exam: 07:31 Constitutional: This is a well developed, well nourished patient who is awake, alert, ms3 and in no acute distress. Neck: Trachea midline, no cervical lymphadenopathy. Supple, full range of motion without nuchal rigidity, or vertebral point tenderness. No Meningismus. Chest/axilla: Normal chest wall appearance and motion. Nontender with no deformity. Cardiovascular: Regular rate and rhythm with a normal S1 and S2. No gallops, murmurs, or rubs. Normal PMI, no JVD. No pulse deficits. Respiratory: Lungs have equal breath sounds bilaterally, clear to auscultation and percussion. No rales, rhonchi or wheezes noted. No increased work of breathing, no retractions or nasal flaring. 07:31 Abdomen/GI: Inspection: abdomen appears normal, Bowel sounds: normal, Palpation: moderate abdominal tenderness, in the right lower quadrant and left lower quadrant, Vital Signs: 07:16 BP 132 / 80; Pulse 72; Resp 16; Temp 98.4(O); Pulse Ox 100% on R/A; Weight 75.75 kg; hb Height 5 ft. 5 in. ; Pain 10/10; 07:59 BP 106 / 66; Pulse 67; Resp 16; Pulse Ox 100% on R/A; ll1 08:19 BP 130 / 87; Pulse 67; Resp 18; Pulse Ox 98% on R/A; ld1 08:42 BP 134 / 87; Pulse 62; Resp 16; Pulse Ox 100% on R/A; Pain 2/10; ll1 10:04 BP 131 / 86; Pulse 65; Resp 16; Pulse Ox 100% ; Pain 7/10; ll1 07:16 Body Mass Index 27.79 (75.75 kg, 165.1 cm) hb 07:16 Pain Scale: Adult hb 08:42 Pain Scale: Adult ll1 10:04 Pain Scale: Adult ll1 MDM: 07:31 Patient medically screened. ms3 07:31 Differential diagnosis: diverticulitis, Irritable bowel syndrome, non-specific abd ms3 pain. External Records Reviewed: Outside ED record: CT abdomen pelvis with contrast from 07/31/2023 8:33 AM. There is mild surfer control wall thickening involving the right colon and right portion of transverse colon with surrounding mild inflammatory changes suggesting colitis. There are multiple mildly prominent mesenteric nodes within the right abdomen measuring up to 1.0 cm, likely reactive. There is a 4.1 cm left ovarian septated cystic lesion. Follow-up pelvic ultrasound [address] abdomen without contrast performed 07/31/2023 8:35 PM shows thickened eid of the descending colon and hepatic flexure with mild surrounding edema and multiple nonenlarged lymph nodes in the right lower quadrant consistent with colitis, which may be infectious or inflammatory. Tumor is less likely but is not ruled out. Transvaginal ultrasound performed 07/31/2023 at 7:45 PM. No evidence of acute pathology. Left ovarian cyst measured 2.6 cm and 3.31 cm and containing low-level echoes, consistent with hemorrhagic cyst. Findings may represents mittelschmerz. Correlate with menstrual cycle. Labs performed 07/31/2020 3 AM: Urinalysis significant for ketones 80 mg/dL, COVID-negative, flu negative, negative. Sodium 137, potassium 4.2, bicarb 29, chloride 107, glucose 95, calcium 9.7, BUN 6, creatinine 1.0, alk phos 87, ALT 31, AST 21, T. bili 0.9. CBC 9.5, hemoglobin 14.2, hematocrit 40.4, platelet 288. Labs performed evening of 07/31/2023 at [facility]: Urinalysis significant for ketones 15 mg/dL. Glucose 120, BUN 15, calcium 9, creatinine 1.0, sodium 139, potassium 4.1, chloride 102, bicarb 27. Albumin 4.1, alk phos 94, ALT 25, amylase 36, AST 21, T. bili 0.7, test negative. CBC white blood count 11.8, hemoglobin 14.0, hematocrit 39.5, platelet 282. 08:14 Data reviewed: vital signs, nurses notes, lab test result(s), and as a result, I will ms3 transfer patient. Consideration of Admission/Observation Patient transferred to [facility] as [facility] does not have GI personal care service provider.. I considered the following discharge prescriptions or medication management in the emergency department Medications were administered in the Emergency Department. See MAR. Historians other than the Patient: Spouse/Significant Other: Patient's . Care significantly affected by the following chronic conditions: Diverticulitis. Counseling: I had a detailed discussion with the patient and/or guardian regarding the historical points, exam findings, and any diagnostic results supporting the discharge/admit diagnosis, lab results, the need to transfer to another facility, [facility] does not immediately have the required specialist. ED course: Discussed case with Dr. Haney and he accepts patient at [facility]. Discussed plan for transfer with patient and she understands and agrees with plan. 08/01 07:16 Order name: CBC with Diff; Complete Time: 07:55 ms3 08/01 07:16 Order name: CMP; Complete Time: 07:55 ms3 08/01 07:16 Order name: IV Saline Lock; Complete Time: 07:20 ms3 08/01 07:16 Order name: Labs collected and sent; Complete Time: 07:20 ms3 Administered Medications: 07:39 Drug: Ondansetron IVP 4 mg IVP once; over 2 minutes Route: IVP; Site: right antecubital;ll1 08:42 Follow up: Response: No adverse reaction ll1 07:54 Drug: morphine IVP or IV 4 mg IVP once over 4 mins Route: IVP; Infused Over: 4 mins; ll1 Site: right antecubital; 08:42 Follow up: Response: No adverse reaction; Pain is decreased; RASS: Alert and Calm (0) ll1 10:04 Drug: morphine IVP or IV 4 mg IVP once over 4 mins Route: IVP; Infused Over: 4 mins; ll1 Site: right antecubital; Disposition Summary: 08/01/23 08:14 Transfer Ordered Notes: Transfer Location: Other Acute Care Facility ms3 Reason: Higher level of care ms3 Condition: Stable ms3 Problem: new ms3 Symptoms: are unchanged ms3 Accepting Physician: Dr Haney(08/01/23 10:05) ll1 Diagnosis - Left sided colitis with rectal bleeding ms3 - Lower abdominal pain, unspecified ms3 - Diarrhea, unspecified ms3 Forms: - Medication Reconciliation Form ms3 - SBAR form ms3 Signatures: Dispatcher [employer] EDPaola Naqvi RN RN Jesusita Montano RN RN ll1 Wade Garcia DO DO ms3 Corrections: (The following items were deleted from the chart) 10:05 08:14 Dr Haney ms3 ll1
[2023-08-01 10:53] VITALS: TEMP 98.4; O2SAT 100
[2023-08-01 11:00] VITALS: BP 131/86
== END 2023-08-01 10:05 ==
LOC: ER 06:59
DX: K51.511 Left sided colitis with rectal bleeding (principal); R19.7 Diarrhea, unspecified; Z88.1 Allergy status to other antibiotic agents
CPT/HCPCS: 85025; 36415; 80053; J2405